=== PATIENT | female | born 1990 | race Caucasian/White ===

== ENCOUNTER → 2023-12-12 09:54 | Outpatient (CLI) | payer BC, SELFPAY | PROVIDERS: PCP Student in an Organized Health Care Education/Training Program; Visit Provider Student in an Organized Health Care Education/Training Program | DX: B37.9 Candidiasis, unspecified (principal); M06.9 Rheumatoid arthritis, unspecified; N94.6 Dysmenorrhea, unspecified | CPT/HCPCS: 87210 ==